=== PATIENT | male | born 1995 | race Caucasian/White ===

== ENCOUNTER 2022-12-27 14:46 | Emergency (ER) | payer MEDICAID, SELFPAY ==
--- NOTE | ~2022-12-27 | XR_ITS ---
EXAMINATION: XR KNEE, LEFT CLINICAL INFORMATION: Left knee pain status post fall. COMPARISON: None available. TECHNIQUE: Four views of the left knee. FINDINGS: The patient is status post left knee ACL reconstruction with associated postsurgical changes. An orthopedic button is seen along the lateral margin of the distal left femur. Minimal degenerative joint changes are seen. There is no acute fracture or dislocation. There is no joint effusion. The soft tissues are unremarkable. XR/XR knee LT 4V IMPRESSION: 1. Minimal degenerative joint changes. No acute fracture. 2. Status post left knee ACL reconstruction with associated postsurgical changes.
[2022-12-27 14:53] VITALS: BP 139/84; PULSE 92; RESP 20; TEMP 36.8; O2SAT 97; BMI 38.7
--- NOTE | 2022-12-27 14:56 | ED_ITS ---
HPI - Extremity Injury (Lower) General Chief Complaint: Extremity Injury, Lower Stated Complaint: L Knee Pain S/P Injury 2 Mos Ago Time Seen by Provider: 12/27/22 15:58 Source: patient, RN notes reviewed and old records reviewed Mode of arrival: ambulatory History of Present Illness HPI Narrative: 27-year-old male with a past medical history of prior left knee surgery, presenting to the ED complaining of acute on chronic left knee pain x2 months s/p twisting injury. Denies direct injury/trauma or fall. States pain has been persistent, denies fever/chills, numbness, tingling, weakness. MD complaint: knee injury Related Data Allergies Allergy/AdvReac Type Severity Reaction Status Date / Time No Known Allergies Allergy Verified 12/27/22 14:55 Review of Systems Review of Systems: Constitutional: No Fever, No Chills ENT/Mouth: No Ear Pain, No Nasal Congestion, No sore throat, No Rhinorrhea, No Swallowing Difficulty Cardiovascular: No Chest Pain, No SOB Respiratory: No Cough, No Sputum, No Wheezing Musculoskeletal: + joint pain, No Myalgias, No Joint Swelling Skin: No Skin Lesions, No rash Neuro: No Weakness, No Numbness, No Paresthesias Yes all other systems are reviewed and are negative Constitutional: Constitutional: Reports as per [facility] Past Medical History Attestation statement: The following information was validated with the patient. Source: old records reviewed Social History Social History Alcohol intake: current Alcohol intake frequency: holidays/special occasions only Smoked in Last 30 Days: No Use of substances other than those prescribed or required for medical reasons: No Advance Directives: No Advance Directives Information Provided: No Physical Exam Vital Signs: Vital Signs: Last Vital Signs Temp 98.2 F 12/27/22 14:53 Pulse 92 12/27/22 14:53 Resp 20 12/27/22 14:53 BP 139/84 12/27/22 14:53 Pulse Ox 97 12/27/22 14:53 O2 Del Method Room Air 12/27/22 14:53 BMI result Body Mass Index 38.7 Const: General: cooperative, healthy appearing and no acute distress Orientation/consciousness: patient oriented x3 Limitations: no limitations HEENT: Head: Yes normal to inspection and Yes atraumatic Ears: hearing grossly normal bilaterally General nose exam: Normal external nose present Face and sinus: Yes normal facial exam Eyes: General: appearance normal, both eyes and all related structures EOM: EOMs intact bilaterally Neck: Neck: Yes normal visual inspection and Yes no meningeal signs Resp: Effort & Inspection: normal respiratory effort and no respiratory distress Cardio: Rate: regular rate Peripheral pulses: Peripheral pulses 2+ throughout Skin: Rashes: no rashes Wounds: no wounds Neuro: General: patient oriented x3, tone normal and no meningeal signs Gait exam (Neuro): Normal gait present Extrem: Other: Left knee without noted deformity or erythema. Old surgical scar noted. Mildly tender to palpation. Full range of motion intact with out limitations, neurovascular intact distally. No pitting edema or calf tenderness General: Yes normal to inspection Course Course Course Narrative: RME - 27 yo male with history of left ACL reconstruction in the past presents to the ER for evaluation of acute on chronic left knee pain x1 week. he fell onto it 2 months ago and has had pain since. seen at [facility] last week, had x- rays done showing maybe a crack but told everything was fine. Here for x-ray and re-evaluation today. Ambulatory into triage. Plan: x-ray XR knee LT 4V IMPRESSION: 1.? Minimal degenerative joint changes. No acute fracture. 2.? Status post left knee ACL reconstruction with associated postsurgical changes. ? >> Champ wrap applied for comfort/stability Results discussed with patient including worrisome signs and symptoms and strict return precautions, and when to return to the emergency department. They verbalized understanding and feel safe for discharge at this time. Medical Decision Making Medical Decision Making MDM Narrative: 27-year-old male with a past medical history of prior left knee surgery, presenting to the ED complaining of acute on chronic left knee pain x2 months s/p twisting injury. On exam vital signs stable, NAD, nontoxic appearing, physical exam as noted above. Concern for musculoskeletal/tendinitis, tendon/ligament or meniscal injury. Lower suspicion for fracture/dislocation Plan: X-rays ordered in triage Please refer to course for remaining clinical decision making, interpretation of labs/imaging results, and discussions with consultants and/or family members. Differential Diagnosis Differential Diagnoses: The differential diagnosis associated with the presentation includes As above Radiology Impression Discussion of test interpretation with radiology: I have reviewed the radiologist's reading. External Record Review External record reviewed: Inpatient record, Office record, Outpatient record, Prior outpatient labs, Prior outpatient radiology, Primary care record and Outside ED record Tests considered The following testing was considered but not selected: As above Prescription Management I considered prescription management with: Pain Medication Discharge Plan Discharge Clinical Impression: Chronic knee pain Patient Disposition: Home, Self-Care Instructions: Knee Pain (ED) Additional Instructions: Your x-ray did not show any fracture, you have some arthritic changes Wear Champ wrap for comfort and stability Ice and elevate Take Tylenol /Motrin Follow-up with her doctor and orthopedics A symptoms persist or worsen return to the ED Referrals: [facility] [Provider Group] [facility] [Outside] Stand Alone Forms: Work/School Release
--- NOTE | 2022-12-27 15:56 | PC.NURSE ---
Pt brought back from waiting room, ambulatory with steady gait. Reports falling about two months ago and has had knee pain since. Pt was seen at [facility], they stated that there is nothing wrong with the knee, but it could be cracked . Pt was d/c from there but is having continued pain
== END 2022-12-27 16:58 | disposition home or self-care (01) ==
PROVIDERS: Emergency Provider Emergency Medicine Emergency Medical Services
DX: M25.562 Pain in left knee (principal)
CPT/HCPCS: 73564; 99283; 99284

== ENCOUNTER 2023-01-04 14:06 | Outpatient (AMB) | payer MEDICAID, SELFPAY ==
--- NOTE | 2023-01-04 14:35 | MHC.OFFVIS ---
Intake Vital Signs 01/04/23 14:38 Height 5 ft 10 in Weight 270 lb BMI 38.7 Intake Visit Reasons: [facility] [facility]ILITY PSYCHIATRIST- Left Knee Pain Intake Note: Frandy is a 27 year old male who presents today as a new patient with complaints of left knee pain and giving way. He did undergo left knee ACL reconstruction surgery by Dr. Cedeno in 2016 after injuring his knee while playing football. Patient states that he re-injured his knee approximately 1 year ago. He twisted his knee and had acute onset of pain. Most of the pain is along the medial aspect of his knee. He has done physical therapy which aggravated his pain. He has had injections in the past which gave him minimal relief. He has also tried Tylenol and anti-inflammatory medicines which gave him minimal relief. The patient states that his left knee will give out several times per day. Allergies No Known Allergies Allergy (Verified 12/27/22 14:55) Medication List - Last Reconciled 01/04/23 by Florian Hopkins MD No Known Home Meds [facility] Surgical History (Updated 01/04/23 @ 14:40 by Katy Iraheta CMA) H/O left knee surgery (~2015) Social History (Updated 01/04/23 @ 14:40 by Katy Iraheta CMA) Alcohol intake: current Alcohol intake frequency: holidays/special occasions only Current occupational status: employed Current occupation: [employer] Physical Exam Vital Signs: BMI result Body Mass Index 38.7 Const Other: Well-nourished well-developed very friendly male awake alert and oriented x3 in no acute distress Extrem Other: Bilateral lower extremity examination shows good capillary refill, no skin lesions noted, normal sensation light touch Left knee examination shows that the surgical incision is well healed, no erythema, tenderness along his medial joint line, positive Onesimo's test, negative Kalie's test Results Reviewed Results Reviewed: X-rays of the patient's left knee show mild diffuse joint space narrowing, no acute bony abnormalities Assessment & Plan Assessment & Plan (1) Tear of medial meniscus of left knee: Code(s): S83.242A - Other tear of medial meniscus, current injury, left knee, initial encounter Plan: Mr. Miller presents with progressively worsening left knee pain and mechanical symptoms most likely due to a tear of his medial meniscus. Thus, I send the patient for an MRI of his left knee for further evaluation. I will see him back once the MRI is completed to discuss the findings and treatment options. He will contact me prior to that time should his symptoms worsen in any way. I spent 22 minutes in reviewing the patient's records and imaging studies, seeing the patient and documenting in the medical record. Orders: Orders MR knee LT wo con Today S83.242A - Other tear of medial meniscus, current injury, left knee, initial encounter Coding Level of Care Code New Pt Level 2 (41672) Diagnoses Tear of medial meniscus of left knee S83.242A
[2023-01-04 14:38] VITALS: BMI 38.7
== END 2023-01-04 15:08 | disposition home or self-care (01) ==
PROVIDERS: Visit Provider Orthopaedic Surgery
DX: S83.242A Other tear of medial meniscus, current injury, left knee, initial encounter (principal)
CPT/HCPCS: 99202

== ENCOUNTER → 2023-01-04 14:06 | Outpatient (BNVA) | payer MEDICAID, SELFPAY | PROVIDERS: Visit Provider Orthopaedic Surgery | DX: S83.242A Other tear of medial meniscus, current injury, left knee, initial encounter (principal) | CPT/HCPCS: 99202 ==

== ENCOUNTER → 2023-11-14 10:24 | Outpatient (BNVA) | payer OTHER, SELFPAY | PROVIDERS: Visit Provider Registered Nurse | DX: S83.412A Sprain of medial collateral ligament of left knee, initial encounter (principal); W17.2XXA Fall into hole, initial encounter | CPT/HCPCS: 73562; 99203 ==

== ENCOUNTER → 2023-11-21 09:07 | Outpatient (BNVA) | payer OTHER, SELFPAY | PROVIDERS: Visit Provider Physician Assistant Medical | DX: S83.412D Sprain of medial collateral ligament of left knee, subsequent encounter (principal); W17.2XXD Fall into hole, subsequent encounter | CPT/HCPCS: 99213 ==